=== PATIENT | male | born 1985 | race Caucasian/White ===

== ENCOUNTER 2017-01-19 11:53 | Day surgery (SDC) | payer BC ==
[~2017-01-19 11:53] MED LIST: NORMAL SALINE 1,000 ML IV PRN
[2017-01-19] MEDS ORDERED: NORMAL SALINE 1,000 ML IV ONE (12:51)
[2017-01-19] MEDS ORDERED: BUPIVACAINE HCL 50 ML VIAL IJ ONE (13:15)
--- NOTE | 2017-01-19 13:38 | OR ---
Operative Report - Dictated Report Narrative: Location: Main OR Anesthesia: MAC anesthesia Local .25% Marcain Surgeon: Dr. Law Preoperative diagnosis: Desired Sterilization Postoperative diagnosis: same Procedure: Vasectomy Bilateral Description: Consent obtained. Patient brought to the operating room and placed in the dorsal lithotomy position. Prepped and draped. MAC anesthesia provided. Timeout taken per protocol. Left vas identified and grasped with a towel piercing forceps. Small skin incision made using a scalpel. Vas grasped with ring and pulled per incision. Greater than 1 cm segment isolated, transected, fulgurated, tied with 2-0 silk. Vasal sheath infiltrated with quarter percent Marcaine, irrigation then carried out. The vas was returned to its normal anatomic location. Skin incision closed with interrupted 3-0 chromic and infiltrated with quarter percent Marcaine. Identical procedure performed on the opposite side in an identical fashion. Specimen: None EBL: 1 cc Condition: tolerated procedure
[2017-01-19 14:45] VITALS: BP 121/80
== END 2017-01-19 11:54 | disposition home or self-care (01) ==
LOC: AMB 11:53
PROVIDERS: ATTEND Urology
PROC: 0VBQ0ZZ Excision of Bilateral Vas Deferens, Open Approach (ICD-10-PCS; principal; 2017-01-19 13:00)
DX: Z30.2 Encounter for sterilization (principal); F17.210 Nicotine dependence, cigarettes, uncomplicated; E66.9 Obesity, unspecified; Z68.35 Body mass index [BMI] 35.0-35.9, adult